=== PATIENT | female | born 1980 | race Native Hawaiian/Other Pacific Islander ===

== ENCOUNTER 2019-01-24 17:13 | Outpatient (CLI) | payer OTHER ==
[~2019-01-24 17:13] MED LIST: ADIPEX PO; BROMFED DM PO; HYDR25TA60 PO; MILLIPRED DP5 MG OR; Z-PAK PO
== END 2019-01-24 22:56 | disposition home or self-care (01) ==
LOC: RAD 17:13
DX: R59.0 Localized enlarged lymph nodes (principal); M54.2 Cervicalgia

== ENCOUNTER 2019-08-09 20:29 | Emergency (ER) | payer OTHER ==
[~2019-08-09] VITALS: Ht 170.2 cm; Wt 99.8 kg
[2019-08-09 22:30] VITALS: BP 148/88; TEMP 98.1
== END 2019-08-09 22:37 | disposition home or self-care (01) ==
LOC: ED 20:29
DX: H60.8X1 Other otitis externa, right ear (principal)
CPT/HCPCS: 96372; 99283; J0696; J1885

== ENCOUNTER 2020-02-14 07:53 | Outpatient (CLI) | payer OTHER | END 2020-02-14 22:02 | disposition home or self-care (01) | LOC: RESP 07:53 | DX: G40.209 Localization-related (focal) (partial) symptomatic epilepsy and epileptic syndromes with complex partial seizures, not intractable, without status epilepticus (principal) ==

== ENCOUNTER 2020-06-07 10:00 | Emergency (ER) | payer OTHER ==
[~2020-06-07] VITALS: Ht 170.2 cm; Wt 99.8 kg
[2020-06-07 10:13] VITALS: BP 149/84; TEMP 98.9
== END 2020-06-07 11:20 | disposition home or self-care (01) ==
LOC: ED 10:00
DX: S93.691A Other sprain of right foot, initial encounter (principal); W17.2XXA Fall into hole, initial encounter; Y92.89 Other specified places as the place of occurrence of the external cause
CPT/HCPCS: 84550; 99283

== ENCOUNTER 2020-11-14 08:50 | Outpatient (CLI) | payer OTHER | END 2020-11-14 20:31 | disposition home or self-care (01) | LOC: RESP 08:50 | PROVIDERS: ATTEND Specialist | DX: G40.209 Localization-related (focal) (partial) symptomatic epilepsy and epileptic syndromes with complex partial seizures, not intractable, without status epilepticus (principal) ==

== ENCOUNTER 2021-07-24 08:30 | Outpatient (CLI) | payer OTHER | END 2021-07-24 18:50 | disposition home or self-care (01) | LOC: LABW 08:30 | PROVIDERS: ATTEND Specialist | DX: G40.209 Localization-related (focal) (partial) symptomatic epilepsy and epileptic syndromes with complex partial seizures, not intractable, without status epilepticus (principal) | CPT/HCPCS: 36415; 82542 ==

== ENCOUNTER 2022-05-27 15:45 | Emergency (ER) | payer BC ==
[~2022-05-27] VITALS: Ht 170.2 cm; Wt 99.8 kg
[2022-05-27 15:47] VITALS: TEMP 97.5
[2022-05-27 16:15] LABS: PLATELET COUNT 317 K/uL (152-353)
[2022-05-27 16:24] LABS: POTASSIUM 3.8 mmol/L (3.6-5.2)
[2022-05-27 17:47] VITALS: BP 98/54
== END 2022-05-27 18:43 | disposition home or self-care (01) ==
LOC: ED 15:45
PROVIDERS: Emergency Medicine
DX: M79.18 Myalgia, other site (principal); X50.0XXA Overexertion from strenuous movement or load, initial encounter; Y92.89 Other specified places as the place of occurrence of the external cause; Z98.890 Other specified postprocedural states
CPT/HCPCS: 80053; 81000; 84484; 85027; 93005; 96374; 96375; 99284; J1885; J2405

== ENCOUNTER 2022-06-18 09:56 | Outpatient (CLI) | payer BC | END 2022-06-18 21:57 | disposition home or self-care (01) | LOC: RAD 09:56 | PROVIDERS: ATTEND Nurse Practitioner Family | DX: R07.81 Pleurodynia (principal) ==

== ENCOUNTER 2022-06-29 08:33 | Outpatient (CLI) | payer BC | END 2022-06-29 19:54 | disposition home or self-care (01) | LOC: CT 08:33 | PROVIDERS: ATTEND Nurse Practitioner Family | DX: R50.9 Fever, unspecified (principal); M54.89 Other dorsalgia; R10.9 Unspecified abdominal pain; N20.0 Calculus of kidney ==

== ENCOUNTER 2022-07-02 20:26 | Emergency (ER) | payer BC ==
[~2022-07-02] VITALS: Ht 170.2 cm; Wt 76.7 kg
[2022-07-02 21:07] LABS: PLATELET COUNT 276 K/uL (152-353)
[2022-07-02 21:19] LABS: POTASSIUM 4.1 mmol/L (3.6-5.2)
[2022-07-02 23:16] VITALS: BP 117/84; TEMP 98.6
== END 2022-07-02 23:16 | disposition home or self-care (01) ==
LOC: ED 20:26
PROVIDERS: Emergency Medicine
DX: N20.0 Calculus of kidney (principal)
CPT/HCPCS: 36415; 80053; 81000; 85027; 96360; 96374; 96375; 96376; 99284; J2270; J2405